=== PATIENT | female | born 1995 | race Two or more races ===

== ENCOUNTER 2016-03-30 10:13 | Emergency (ER) | payer OTHER ==
[~2016-03-30] VITALS: Ht 167.6 cm; Wt 60.2 kg
[~2016-03-30 10:13] MED LIST: FLEXERIL10 MG PO; GABAPENTIN300 MG PO; IBUPROFEN600 MG PO; LIDODERM 5% P1 PATCH TD; LORTAB 5-325 M1 EACH PO; MICRONOR0.35 MG PO; MOBIC7.5 MG PO; MOTRIN600 MG PO; MOTRIN800 MG PO; Motrin PO; NAPROSYN500 MG PO; NAPROXEN500 MG PO; NOHOMEMEDS; Natalcare Rx,Pramile PO; PREDNISONE10 M1 PO; SKELAXIN800 MG PO; ULTRAM50 MG PO
[2016-03-30 10:35] VITALS: BP 93/84
[2016-03-30 12:09] LABS: INFLUENZA A VIRAL ANTIGEN NEGATIVE; INFLUENZA B VIRAL ANTIGEN NEGATIVE
[2016-03-30] MEDS ORDERED: SUDAFED 12-HOU120 MG PO (12:27)
[2016-03-30] MEDS ORDERED: FLONASE16 G1 BOTH NARES (12:27)
== END 2016-03-30 12:43 | disposition home or self-care (01) ==
LOC: EME 10:13
PROVIDERS: Nurse Practitioner Family
DX: J06.9 Acute upper respiratory infection, unspecified (principal)
CPT/HCPCS: 71020; 87502; 99281; 99283

== ENCOUNTER 2016-04-16 19:01 | Emergency (ER) | payer OTHER ==
[~2016-04-16] VITALS: Ht 157.5 cm; Wt 61.2 kg
[~2016-04-16 19:01] MED LIST changes: +FLONASE16 G1 BOTH NARES; +SUDAFED 12-HOU120 MG PO
[2016-04-16 19:56] LABS: ADD MIUA? NO; BILIRUBIN NEGATIVE; BLOOD NEGATIVE; COLOR YELLOW ((YELLOW)); GLUCOSE (STRIP) NEGATIVE; KETONES NEGATIVE; LEUKOCYTES NEGATIVE; NITRITE NEGATIVE; PROTEIN (STRIP) NEGATIVE; SPECIFIC GRAVITY 1.021 (1.000-1.030); UCUL ADDED? NO; UROBILINOGEN 0.2 MG/DL (0.2-1.0)
[2016-04-16 19:59] LABS: INTERNAL CONTROL VALID? YES
[2016-04-16 22:00] VITALS: BP 124/73
== END 2016-04-16 21:44 | disposition home or self-care (01) ==
LOC: EME 19:01
DX: N92.1 Excessive and frequent menstruation with irregular cycle (principal); F17.200 Nicotine dependence, unspecified, uncomplicated
CPT/HCPCS: 81003; 84703; 99281; 99283